=== PATIENT | female | born 1960 | race Caucasian/White ===

== ENCOUNTER 2024-03-18 19:11 | Emergency (ER) | payer OTHER ==
[2024-03-18] MEDS ORDERED: Sodium Chloride 0.9% 10 ML Syringe FLUSH PRN (20:39)
[2024-03-18] MEDS: Sodium Chloride 0.9% 1,000 ML IV SCH (21:38)
== END 2024-03-18 23:06 | disposition home or self-care (01) ==
LOC: JP.ED 19:11
DX: S00.33XA Contusion of nose, initial encounter (principal); Z79.899 Other long term (current) drug therapy; W18.2XXA Fall in (into) shower or empty bathtub, initial encounter
CPT/HCPCS: 70450; 70486; 99283; J7030